=== PATIENT | female | born 1940 | race Two or more races ===

== ENCOUNTER 2018-11-11 07:28 | Observation (INO) | payer MEDICARE, OTHER ==
[~2018-11-11] VITALS: Ht 121.9 cm; Wt 45.5 kg
[~2018-11-11 07:28] MED LIST: AMLO10TA7 PO; ASPI81 PO; BENA5TAB26 PO; BUPIVACAINE HCL/PF 0.5% 30 ML VIAL ONE; CeFAZolin 2 GM/DEXTROSE 50 ML IV ONE; LOSA25TA41 PO; MEMA10TA11 PO; PANT40TA25 PO; PRAV40TA4 PO; RINGERS SOLUTION,LACTATED 1,000 ML IV ONE
[2018-11-11] MEDS ORDERED: ROCURONIUM BROMIDE 10 MG/ML 5 ML VIAL IVP ONE (07:30)
[2018-11-11] MEDS ORDERED: EPHEDrine SULFATE 50 MG/ML VIAL IM ONE (07:30)
[2018-11-11] MEDS ORDERED: BUPIVACAINE LIPOSOME/PF 1.3%-13.3MG/ML SUSPENSION 10 ML VIAL INJ ONE (07:30)
[2018-11-11] MEDS ORDERED: FentaNYL CITRATE-PF 100 MCG/2 ML VIAL IVP ONE (07:30)
[2018-11-11] MEDS ORDERED: SUCCINYLCHOLINE CHLORIDE 20 MG/ML 10 ML VIAL IVP ONE (07:30)
[2018-11-11] MEDS ORDERED: PROPOFOL 1% 20 ML VIAL IVP ONE (07:30)
[2018-11-11] MEDS ORDERED: MUPIROCIN CALCIUM 2% 22 GM OINTMENT ONE ×2 (07:38→14:05)
[2018-11-11 07:56] LABS: BASOPHILS % (AUTO) 0.8 % (0.0-2.0); EOSINOPHILS % (AUTO) 2.8 % (1.0-6.0); LYMPHOCYTES # (AUTO) 2.3 K/uL (1.0-4.8); LYMPHOCYTES % (AUTO) 40.3 % (22.0-44.0); MEAN CORPUSCULAR HEMOGLOBIN 30.7 pg (26.0-34.0); MEAN CORPUSCULAR HGB CONC 33.3 G/dL (31.0-37.0); MEAN CORPUSCULAR VOLUME 92 fL (80-100); MONOCYTES # (AUTO) 0.5 K/uL (0.1-1.0); MONOCYTES % (AUTO) 8.2 % (2.0-9.0); NEUTROPHILS # (AUTO) 2.7 K/uL (1.8-7.7); NEUTROPHILS % (AUTO) 47.9 % (40.0-70.0); PLATELET COUNT (AUTO) 202 K/uL (150-450); RED BLOOD CELL COUNT(AUTO) 4.23 MIL/uL (4.00-5.20); RED CELL DISTRIBUTION WIDTH 13.8 % (11.5-14.5)
[2018-11-11 08:03] LABS: ANION GAP 9 mmol/L (8-16); CALCIUM, TOTAL 9.4 mg/dL (8.8-10.5); CARBON DIOXIDE 30 mmol/L (22-29); CHLORIDE 102 mmol/L (98-107); CREATININE 0.63 mg/dL (0.60-1.30); GLUCOSE,RANDOM 145 mg/dL (70-110); POTASSIUM 3.6 mmol/L (3.5-5.1); SODIUM SERUM 141 mmol/L (136-145); UREA NITROGEN, BLOOD 11 mg/dL (7-18)
[2018-11-11 08:05] LABS: GLOMERULAR FILTR. RATE CALC > 60 mL/min (>60)
[2018-11-11 08:11] LABS: INR 1.1 (0.9-1.1); PROTHROMBIN TIME 10.7 SEC (9.4-11.6)
[2018-11-11] MEDS ORDERED: MICROFIBRILLAR COLLAGEN 1 GM PACKAGE TP ONE (08:26)
[2018-11-11] MEDS ORDERED: VANCOMYCIN HCL 1 GM/VIAL ONE (08:27)
[2018-11-11] MEDS ORDERED: SODIUM CL IRRIG SOLN BAG 3,000 ML IRRIG ONE (08:40)
[2018-11-11] MEDS ORDERED: MEPERIDINE-PF 25 MG/ML VIAL IVP PRN (09:15)
[2018-11-11] MEDS ORDERED: FentaNYL CITRATE-PF 100 MCG/2 ML VIAL IVP PRN (09:15)
[2018-11-11] MEDS ORDERED: GELATIN SPONGE,ABSORBABLE 100 MM TP ONE (09:47)
[2018-11-11] MEDS ORDERED: CeFAZolin 2 GM/DEXTROSE 50 ML IV ONE ×2 (11:30→13:30)
[2018-11-11 13:43] LABS: BASOPHILS % (AUTO) 0.2 % (0.0-2.0); EOSINOPHILS % (AUTO) 0.2 % (1.0-6.0); HEMATOCRIT 35.8 % (36-46); HEMOGLOBIN 11.8 g/dL (12.0-16.0); LYMPHOCYTES # (AUTO) 1.1 K/uL (1.0-4.8); LYMPHOCYTES % (AUTO) 9.5 % (22.0-44.0); MEAN CORPUSCULAR HEMOGLOBIN 30.2 pg (26.0-34.0); MEAN CORPUSCULAR HGB CONC 32.9 G/dL (31.0-37.0); MEAN CORPUSCULAR VOLUME 92 fL (80-100); MONOCYTES # (AUTO) 0.7 K/uL (0.1-1.0); MONOCYTES % (AUTO) 6.4 % (2.0-9.0); NEUTROPHILS # (AUTO) 9.5 K/uL (1.8-7.7); NEUTROPHILS % (AUTO) 83.7 % (40.0-70.0); PLATELET COUNT (AUTO) 186 K/uL (150-450); RED CELL DISTRIBUTION WIDTH 13.8 % (11.5-14.5)
[2018-11-11] MEDS ORDERED: RINGERS SOLUTION,LACTATED 1,000 ML IV ONE ×3 (14:05→14:30)
[2018-11-11 15:00] VITALS: BP 116/51
[2018-11-11] MEDS ORDERED: OxyCODONE HCL/ACETAMINOPHEN 5-325 MG TABLET PO PRN (15:15)
[2018-11-11] MEDS ORDERED: MORPHINE SULFATE 2 MG/ML SYRINGE IVP PRN (15:15)
[2018-11-11 20:18] VITALS: BP 140/58
[2018-11-11] MEDS: PANTOPRAZOLE SODIUM 40 MG DR TABLET PO SCH (20:53)
[2018-11-11] MEDS: MEMANTINE HCL 10 MG TABLET PO SCH (20:54)
[2018-11-11] MEDS ORDERED: BENAZEPRIL HCL 5 MG TABLET PO SCH (21:00)
[2018-11-11] MEDS ORDERED: CeFAZolin 2 GM/DEXTROSE 50 ML IV SCH (21:00)
[2018-11-11] MEDS: CeFAZolin 2 GM/DEXTROSE 50 ML IV SCH (21:46)
[2018-11-12] VITALS: BP 137/57
[2018-11-12 04:00] VITALS: BP 141/56
[2018-11-12] MEDS: CeFAZolin 2 GM/DEXTROSE 50 ML IV SCH (05:28)
[2018-11-12] MEDS ORDERED: SULF1TAB42 PO (06:13)
[2018-11-12] MEDS: MEMANTINE HCL 10 MG TABLET PO SCH (08:16)
[2018-11-12] MEDS: PANTOPRAZOLE SODIUM 40 MG DR TABLET PO SCH (08:16)
[2018-11-12 08:30] VITALS: BP 122/47
[2018-11-12] MEDS ORDERED: AmLODIPine BESYLATE 10 MG TABLET PO SCH (09:00)
[2018-11-12] MEDS ORDERED: LOSARTAN POTASSIUM 25 MG TABLET PO SCH (09:00)
[2018-11-12] MEDS ORDERED: PRAVASTATIN SODIUM 40 MG TABLET PO SCH (09:00)
== END 2018-11-12 11:23 | disposition home or self-care (01) ==
LOC: SURGERY 07:28 → 4E 07:29
PROVIDERS: ADMIT Orthopaedic Surgery; ATTEND Orthopaedic Surgery
DX: S42.011A Anterior displaced fracture of sternal end of right clavicle, initial encounter for closed fracture (principal); I10 Essential (primary) hypertension; F02.80 Dementia in other diseases classified elsewhere, unspecified severity, without behavioral disturbance, psychotic disturbance, mood disturbance, and anxiety; E78.5 Hyperlipidemia, unspecified; K21.9 Gastro-esophageal reflux disease without esophagitis; Z79.82 Long term (current) use of aspirin; X58.XXXA Exposure to other specified factors, initial encounter
CPT/HCPCS: 20680; 23515; 23700; 36415; 71045; 80048; 85025; 85610; 85730; 88300; 93005; 96365; 96366; C1716; G0378 ×2; J0330; J0690 ×2; J2704; J3010; J3370; J3490 ×3; J7120